=== PATIENT | female | born 1950 | race Caucasian/White ===

== ENCOUNTER 2017-11-05 08:45 | Emergency (ER) | payer MEDICAID, MEDICARE, OTHER ==
[~2017-11-05 08:45] MED LIST: ASPI81 PO; CILOXAN RIGHT EYE; LANTUSP SQ; LEVO.2 PO; NOVOLOGP2 SQ; ROSU5 PO
[2017-11-05 08:51] VITALS: BP 168/78; PULSE 77; RESP 12; TEMP 97.7; O2SAT 98
[2017-11-05] MEDS ORDERED: CYMB60CA PO (09:01)
[2017-11-05] MEDS ORDERED: ROSU20 PO (09:01)
[2017-11-05] MEDS ORDERED: LANTUS2P SQ (09:01)
[2017-11-05] MEDS ORDERED: EZET10 PO (09:01)
[2017-11-05] MEDS ORDERED: LEVO.2 PO (09:01)
[2017-11-05] MEDS ORDERED: NOVOLOGMXP SQ (09:01)
[2017-11-05] MEDS ORDERED: BACT800T5 PO (09:34)
--- NOTE | 2017-11-05 09:35 | PD ---
HPI Chief Complaint: Bite or Sting Time Seen by Provider: 09:09 Travel History International Travel<30 days: No Contact w/Intl Traveler<30days: No Traveled to known affect area: No History of Present Illness HPI 67-year-old female here with multiple ant bites to her right hand 2 days. While cleaning the porch she was bit by numerous fire ants. She then developed small little pustules at the site of the bites. She reports intense itching. The itching is improved with OTC Benadryl. She was concerned the area was infected. She reports normal sensation and full range of motion. No fever chills. Symptom severity is moderate. PFSH Past Medical History Arthritis: Yes Asthma: Yes Autoimmune Disease: No Blood Disorders: No Anxiety: Yes Depression: Yes Heart Rhythm Problems: No Cancer: No Cardiac Catheterization: Yes (2010 - NEGATIVE) Cardiovascular Problems: Yes High Cholesterol: Yes Chemotherapy: No Chest Pain: Yes Congestive Heart Failure: Yes COPD: Yes Cerebrovascular Accident: Yes (MULTIPLE) Diabetes: Yes Diminished Hearing: No Endocrine: Yes Gastrointestinal Disorders: Yes GERD: Yes Glaucoma: No Genitourinary: Yes Headaches: No Hepatitis: No Hiatal Hernia: No Hypertension: No Immune Disorder: No Insomnia: Yes Musculoskeletal: Yes Neurologic: Yes Psychiatric: Yes Reproductive: Yes (HX HYSTERECTOMY) Respiratory: Yes Migraines: No Myocardial Infarction: No Radiation Therapy: No Seizures: No Sleep Apnea: Yes Thyroid Disease: Yes (HYPO) Ulcer: Yes ?: Not Menopausal: Yes Ovarian Cysts: Yes Past Surgical History Abdominal Surgery: Yes (GALL BLADDER, APPENDECTOMY) AICD: No Appendectomy: Yes Arteriovenous Shunt: No Cardiac Surgery: Yes Cholecystectomy: Yes Ear Surgery: No Endocrine Surgery: No Eye Surgery: No Genitourinary Surgery: No Gynecologic Surgery: Yes (HYSTERECTOMY) Hysterectomy: Yes Insulin Pump: No Joint Replacement: No Oral Surgery: No Pacemaker: No Thoracic Surgery: No Tonsillectomy: Yes Other Surgery: Yes Social History Alcohol Use: No Tobacco Use: Yes (1 PPD) Substance Use: No Allergies-Medications (Allergen,Severity, Reaction): Coded Allergies: carisoprodol (Verified Allergy, Severe, BLURRED VISION, 11/05/17) penicillin G (Verified Allergy, Severe, COMA, 11/05/17) tuberculin, purified protein deriva (Verified Allergy, Severe, NAUSEA, CHILLS,WEAKNESS, 11/05/17) Reported Meds & Prescriptions Reported Meds & Active Scripts Active Reported Cymbalta DR (Duloxetine HCl) 60 Mg Capdr 60 Mg PO DAILY Zetia (Ezetimibe) 10 Mg Tab 10 Mg PO DAILY Crestor (Rosuvastatin Calcium) 20 Mg Tab 20 Mg PO DAILY Synthroid (Levothyroxine Sodium) 200 Mcg Tab 200 Mcg PO DAILY Novolog Mix 70-30 Inj (Insulin Aspart Prota 70%/Aspart 30%) 1,000 Unit/10 Ml Vial 1 Units SQ SLIDING SCALE Lantus Inj (Insulin Glargine) 1,000 Unit/10 Ml Vial 40 Units SQ BID Review of Systems Except as stated in HPI: all other systems reviewed are Neg General / Constitutional: No: Fever Physical Exam Narrative GENERAL: Alert and well-appearing 67-year-old female SKIN: Warm and dry. Multiple infected insect bites to the right hand. No surrounding cellulitis. No lymphangitis. HEAD: Normocephalic. EYES: No injection or drainage. NECK: Supple CARDIOVASCULAR: Regular rate and rhythm without murmurs, gallops, or rubs. RESPIRATORY: Breath sounds equal bilaterally. No accessory muscle use. GASTROINTESTINAL: Abdomen soft, non-tender, nondistended. MUSCULOSKELETAL: No cyanosis. Right hand with multiple small pustules at the site of insect bites with mild erythema. She is able to flex and extend the fingers. Normal sensation. Brisk cap refill. Data Data Last Documented VS Vital Signs Date Time Temp Pulse Resp B/P (MAP) Pulse Ox O2 Delivery O2 Flow Rate FiO2 11/05/17 08:51 97.7 77 12 168/78 (108) 98 MDM Medical Decision Making Medical Screen Exam Complete: Yes Emergency Medical Condition: Yes Differential Diagnosis Infected insect bites, bites, abscess, cellulitis, folliculitis Narrative Course 67-year-old female here with multiple infected insect bites. She is nontoxic appearing. There is no surrounding cellulitis. She will be treated with Bactrim. Instructed to continue OTC Benadryl and hydrocortisone cream for itching. Diagnosis Primary Impression: Infected insect bite Qualified Codes: W57.XXXA - Bitten or stung by nonvenomous insect and other nonvenomous arthropods, initial encounter Referrals: Primary Care Physician Additional Instructions: Medication as directed. Continue [id number] Benadryl 25-50 mg every 6 hours as needed for itching Continue hydrocortisone cream for itching Follow-up with your primary doctor. Return if he develop fever, chills, increasing pain, increasing swelling and redness Scripts Sulfamethoxazole-Trimethoprim (Bactrim DS) 800-160 Mg Tab 1 TAB PO BID for Infection, #20 TAB 0 Refills Prov: Raysa Leonardo 11/05/17 Disposition: 01 DISCHARGE HOME Condition: Stable Raysa Leonarod November 05, 2017 09:34
== END 2017-11-05 09:47 | disposition home or self-care (01) ==
LOC: PHEFT 08:45
DX: T63.421A Toxic effect of venom of ants, accidental (unintentional), initial encounter (principal); L08.9 Local infection of the skin and subcutaneous tissue, unspecified; E11.9 Type 2 diabetes mellitus without complications; E78.00 Pure hypercholesterolemia, unspecified; F32.9 Major depressive disorder, single episode, unspecified; F41.9 Anxiety disorder, unspecified; I50.9 Heart failure, unspecified; J44.9 Chronic obstructive pulmonary disease, unspecified; F17.200 Nicotine dependence, unspecified, uncomplicated
CPT/HCPCS: 99283